=== PATIENT | male | born 1990 | race African-American/Black ===

== ENCOUNTER 2019-10-25 19:33 | Emergency (ER) | payer OTHER ==
[~2019-10-25] VITALS: Ht 185.4 cm; Wt 110.0 kg
--- NOTE | 2019-10-25 19:35 | PHYS DOC ---
Adult General Chief Complaint Chief Complaint: ".. I was workling out.. and got a injury to my Lt. hand... 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 Patient was doing inclined bench presses and felt a sharp pain in left hand. Distal neurovascular in left hand is equal to right hand. Patient localizes pain to fore finger and metatarsal area of digits 2 and 3. No history of previous injury. Patient up-to-date with vaccinations. No recent travel. No specific ill contacts. Normally healthy. Patient is right-hand dominant. Patient Follows at [facility] Review of Systems Review of Systems Constitutional: Denies fever or chills [] Eyes: Denies change in visual acuity, redness, or eye pain [] HENT: Denies nasal congestion or sore throat [] Respiratory: Denies cough or shortness of breath [] Cardiovascular: No additional information not addressed in HPI [] GI: Denies abdominal pain, nausea, vomiting, bloody stools or diarrhea [] : Denies dysuria or hematuria [] Musculoskeletal: Denies back pain or joint pain [,]except complaints of left hand injury Integument: Denies rash or skin lesions [] Neurologic: Denies headache, focal weakness or sensory changes [] Endocrine: Denies polyuria or polydipsia [] All other systems were reviewed and found to be within normal limits, except as documented in this note. Family History Family History Noncontributory Current Medications Current Medications See nursing for home meds Allergies Allergies No known drug allergies Physical Exam Physical Exam Constitutional: Well developed, well nourished, no acute distress, non-toxic appearance. [] HENT: Normocephalic, atraumatic, bilateral external ears normal, oropharynx moist, no oral exudates, nose normal. [] Eyes: PERRLA, EOMI, conjunctiva normal, no discharge. [] Neck: Normal range of motion, no tenderness, supple, no stridor. [] Cardiovascular:Heart rate regular rhythm, no murmur [] Lungs & Thorax: Bilateral breath sounds clear to auscultation [] Abdomen: Bowel sounds normal, soft, no tenderness, no masses, no pulsatile masses. [] Skin: Warm, dry, no erythema, no rash. [] Back: No tenderness, no CVA tenderness. [] Extremities: No tenderness, no cyanosis, no clubbing, ROM intact, no edema. [] Except left hand injury and exam as per history of present illness Neurologic: Alert and oriented X 3, normal motor function, normal sensory function, no focal deficits noted. [] Psychologic: Affect normal, judgement normal, mood normal. [] EKG EKG [] Radiology/Procedures Radiology/Procedures [][place] [address] IMAGING REPORT Signed PATIENT: JONES FRAGA NACCOUNT: [id number] : 1990 LOCATION: ER AGE: 28 SEX: M EXAM STATUS: PRE ER ORD. PHYSICIAN: FLORENTIN CASTRO MD REASON: Left hand injury, pain with swelling PROCEDURE: HAND LEFT 3V Left hand 3 views. HISTORY: Left hand injury, pain and swelling 3 views were taken of the left hand. There is not evidence of an acute fracture or osseous abnormality. IMPRESSION: 1. No fracture or acute osseous abnormality in the left hand. Electronically signed by: Iftikhar Dumas MD (10/25/2019 8:27 PM) [id number] DICTATED AND SIGNED BY: IFTIKHAR DUMAS MD DATE: 10/25/192026 CC: FLORENTIN CASTRO MD ~ Course & Med Decision Making Course & Med Decision Making Pertinent Labs and Imaging studies reviewed. (See chart for details) Patient refused to hand. Ice and elevation needed for swelling and discomfort. Tylenol and ibuprofen for pain. Marked pain may take Vicoprofen. Follow-up [facility]. Consider repeat x-ray in 2 weeks if persistent pain in left hand. Return if any concerns Impression: 1. Sprain/ Strain [] Dragon Disclaimer Dragon Disclaimer This electronic medical record was generated, in whole or in part, using a voice recognition dictation system. Departure Departure: Disposition: 01 HOME/RESIDENCE PRIOR TO ADM Condition: STABLE Scripts Hydrocodone/Ibuprofen (HYDROCODONE-IBUPROFEN 7.5-200 ) 1 Each Tablet 1 TAB PO PRN Q6HRS PRN for PAIN, #30 TAB 0 Refills Prov: FLORENTIN ACSTRO MD 10/25/19 Dragon Disclaimer This chart was dictated in whole or in part using Voice Recognition software in a busy, high-work load, and often noisy Emergency Department environment. It may contain unintended and wholly unrecognized errors or omissions. FLORENTIN CASTRO MD Oct 25, 2019 19:35
[2019-10-25 19:45] VITALS: BP 141/98
--- NOTE | 2019-10-25 20:30 | RAD ---
Left hand 3 views. HISTORY: Left hand injury, pain and swelling 3 views were taken of the left hand. There is not evidence of an acute fracture or osseous abnormality. IMPRESSION: 1. No fracture or acute osseous abnormality in the left hand. Electronically signed by: Ar Jhaveri MD (10/25/2019 8:27 PM) [id number]
[2019-10-25] MEDS ORDERED: HYDR-1179 PO (21:44)
[2019-10-25] MEDS ORDERED: IBUPROFEN 800 MG TABLET. PO ONE ×2 (21:51→22:00)
== END 2019-10-25 21:59 | disposition home or self-care (01) ==
LOC: ER 19:33
DX: S63.92XA Sprain of unspecified part of left wrist and hand, initial encounter (principal); X50.1XXA Overexertion from prolonged static or awkward postures, initial encounter; Y93.89 Activity, other specified; Y92.89 Other specified places as the place of occurrence of the external cause; Y99.8 Other external cause status
CPT/HCPCS: 73130; 99283